=== PATIENT | male | born 1980 | race Caucasian/White ===

== ENCOUNTER 2022-10-21 11:25 | Day surgery (SDC) | payer OTHER, SELFPAY ==
--- NOTE | 2022-10-21 | PATH_ITS ---
[facility] Accession Number: [id number] No. of containers..04 Tissue . 01 Material submitted: . PART A: stomach - ANTRUM BIOPSY PART B: esophagus, E-G Junction - ESOPHAGUS PART C: esophagus - MID ESOPHAGUS BIOPSY PART D: esophagus - ESOPHAGEAL NODULE . 01 Diagnosis: A. Antrum, Biopsy: Gastric antral mucosa with no diagnostic abnormality. No evidence of Helicobacter organisms on H/E stain. Negative for intestinal metaplasia. Negative for dysplasia or malignancy. . B. Esophagus, Biopsy: Proximal gastric type mucosa with mild chronic inflammation. Negative for specialized intestinal metaplasia, dysplasia, or malignancy. . C. Mid Esophagus, Biopsy: Squamous epithelium with no diagnostic abnormality. Intraepithelial eosinophils are not increased. Negative for dysplasia and malignancy. . D. Esophageal Nodule, Biopsy: Squamous papilloma. Negative for dysplasia or malignancy. [facility] 10/25/2022 0845 Local . 01 Electronically signed: . Alex Uribe MD, PhD, Pathologist NPI- [id number] . 01 Gross description: . Part A: ANTRUM BIOPSY: Received in formalin is 1 fragment(s) of campo, soft tissue measuring 0.4 x 0.2 x 0.1 cm submitted entirely in 1 cassette(s) Part B: ESOPHAGUS: Received in formalin is 1 fragment(s) of campo, soft tissue measuring 0.2 x 0.1 x 0.1 cm submitted entirely in 1 cassette(s) Part C: MID ESOPHAGUS BIOPSY: Received in formalin are 2 fragment(s) of campo, soft tissue measuring 0.4 x 0.2 x 0.1 cm to 0.2 x 0.2 x 0.1 cm submitted entirely in 1 cassette(s) Part D: ESOPHAGEAL NODULE: Received in formalin is 1 fragment(s) of campo, soft tissue measuring 0.3 x 0.2 x 0.1 cm submitted entirely in 1 cassette(s) /CPE 10/22/2022 0744 Local . 01 Pathologist provided ICD-10: K21.9, K22.81 . 01 CPT . 253290, 609991, 160616, 707553 Specimen Comment: A courtesy copy of this report has been sent to [phone] Performed at: 01 [facility] [address] [facility] [address] [place] [address], [place], [place] [id number] MD Didier Dunbar MD Phone: [phone]
[2022-10-21] MEDS: LACTATED RINGERS 1,000 ML 84 ML IV (11:38)
[2022-10-21 11:42] VITALS: BP 143/98; PULSE 71; RESP 18; TEMP 36.7; O2SAT 99; BMI 29.2
--- NOTE | 2022-10-21 12:13 | PM.HP.1 ---
History of Present Illness History of Present Illness Date Patient Seen: 10/21/22 Time Patient Seen: 12:14 Chief complaint: SDC Narrative: I reviewed the recent office note. Dysphagia, dyspepsia, heartburn. EGD is pursued today. Patient History Family & Social History Social History: household members spouse Tobacco & Substance use: Smoking Status Former smoker alcohol intake current alcohol intake frequency a few times a week Substance Use Type marijuana Meds Home Medications and Allergies Home Medications Medication Instructions Recorded Confirmed Type No Known Home Medications 10/21/22 10/21/22 History Allergies Allergy/AdvReac Type Severity Reaction Status Date / Time No Known Allergies Allergy Uncoded 10/21/22 11:50 Review of Systems Review of Systems ROS: Yes All systems reviewed with the patient and are negative except as otherwise documented Exam Vital Signs (past 8 hours): - 10/21/22 11:42 Temperature 98.0 F Pulse Rate 71 Respiratory Rate 18 Blood Pressure 143/98 H Pulse Oximetry 99 Oxygen Delivery Method Room Air Oxygen Delivery Method Room Air Const General: cooperative HENMT Head: normal to inspection Eyes General: appearance normal, both eyes and all related structures Neck Neck: normal visual inspection Chest Chest: normal inspection of the chest Resp Effort & Inspection: normal respiratory effort Cardio Rate: regular rate GI Inspection: normal to inspection Skin General: no rashes or lesions noted Neuro General: patient alert and patient awake Extrem General: normal to inspection and no pedal edema Psych Appearance: grossly normal Assessment & Plan Assessment & Plan narrative: 42-year-old male with a 2 year history of intermittent dysphagia dyspepsia heartburn upper abdominal pain. Diagnostic and potentially therapeutic EGD is pursued today. Time Spent With Patient Critical Care time: I spent a total of [] minutes of critical care time on this patient's care today; this time is exclusive of procedural time.
--- NOTE | 2022-10-21 12:15 | PM.PREOP ---
Pre-operative Note Interval Note History & Physical reviewed/Exam performed by Physician: Yes Changes to H&P: No ASA Class (for procedural sedation): I
--- NOTE | 2022-10-21 12:34 | PM.OP.EGD ---
Operative Date/Time/Diagnoses Date of procedure: 10/21/22 Time of procedure: 12:34 Pre-op diagnosis: Dysphagia, dyspepsia, abdominal pain, heartburn. Post-op diagnosis: same Procedure & Clinicians Study performed: EGD with biopsies Same procedure as scheduled: Yes Indications: Dysphagia, dyspepsia, abdominal pain, heartburn. Surgeon: Zay Morgan Procedure Notes SCOAP/Timeout: Done Procedure in detail: After the risks and benefits were explained, written and verbal informed consent was obtained. The patient was brought into the procedure room and placed into the left lateral decubitus position. Please see anesthesia notes for sedation details. The scope was introduced into the mouth through the bite block and advanced under direct visualization to the 2nd portion of the duodenum. The scope was slowly withdrawn carefully examining the mucosa for any defects or lesions. Retroflexed views were accomplished in the stomach. The stomach was decompressed, the scope was then removed from the patient who tolerated the procedure well. Sedation minutes: 13 Complications: none Impression: 1. Duodenum: This was normal from the bulb through to the 2nd portion. 2. Stomach: Minimal gastropathy. No ulcers no erosions no mass lesions no outlet obstruction. Antral biopsies were taken for exclusion of H pylori. Retroflexed views of the LES were unremarkable. 3. Esophagus: The squamocolumnar junction correlated with the top of the gastric folds. GEJ was at about 41 cm from the incisors. The patient did have LA grade B erosive esophagitis. No strictures no mass lesions no Schatzki's ring. Subtle nodularity at the GE junction and this was biopsied x1. There were some subtle circumferential rings in the midesophagus and biopsies were acquired for exclusion of eosinophilic infiltration. There was a diminutive nodule in the proximal esophagus removed with cold forceps. This measured perhaps 3-4 mm in greatest dimension. Endoscopic diagnosis 1. LA grade B erosive esophagitis 2. Minimal gastropathy 3. Subtle circumferential esophageal rings 4. Diminutive esophageal nodule Post-procedure Plan for aftercare: 1. Await histopathology 2. Patient is encouraged to initiate anti-reflux therapy with omeprazole 20 mg once daily x2 weeks. Taper down and off as able thereafter. Resume anti-reflux therapy for any recurrent symptoms. Number 3 follow up GI clinic in the next 6-8 weeks. Disposition: PACU
[2022-10-21 12:37] VITALS: BP 128/83; PULSE 67; RESP 16; TEMP 36.1; O2SAT 97
[2022-10-21 12:41] VITALS: BP 132/90; PULSE 62; RESP 15; TEMP 36.1; O2SAT 98
[2022-10-21 12:45] VITALS: BP 132/90; PULSE 65; RESP 14; TEMP 36.5; O2SAT 97
[2022-10-21 12:49] VITALS: BP 127/92; PULSE 64; RESP 18; O2SAT 99
[2022-10-21 12:52] VITALS: BP 133/89; PULSE 77; RESP 19; TEMP 36.4; O2SAT 99
== END 2022-10-21 13:12 | disposition home or self-care (01) ==
PROVIDERS: Referring Provider Internal Medicine Gastroenterology; Visit Provider Internal Medicine Gastroenterology
PROC: 0DJ08ZZ Inspection of Upper Intestinal Tract, Via Natural or Artificial Opening Endoscopic (ICD-10-PCS; CPT 43235; principal; 2022-10-21 12:30)
DX: R13.10 Dysphagia, unspecified (principal); K20.80 Other esophagitis without bleeding; K31.9 Disease of stomach and duodenum, unspecified; K29.50 Unspecified chronic gastritis without bleeding; K22.81 Esophageal polyp
CPT/HCPCS: 43239; J2704